=== PATIENT | male | born 1985 | race Caucasian/White ===

== ENCOUNTER 2022-04-26 16:46 | Outpatient (CLI) | payer BC ==
[2022-04-26 18:42] LABS: #Basophils 0.1 10x3/uL (0.0-0.2); #Eosinphils 0.3 10x3/uL (0.0-0.5); #Monocytes 0.6 10x3/uL (0.0-1.1); #Neutrophils 3.3 10x3/uL (1.5-8.4); %Basophils 0.8 % (0.0-2.0); %Lymphocytes 33.4 % (18.0-47.0); %Monocytes 9.6 % (0.0-10.0); %Neutrophils 51.9 % (40.0-75.0); Hemoglobin 15.7 g/dL (13.5-17.5); Mean Platelet Volume 10.4 fl (7.4-10.4); Platelet Count 299 10x3/uL (150-450); RBC Distribution Width 11.9 % (11.5-14.5); White Blood Cell (WBC) Count 6.3 10x3/uL (3.5-10.5)
[2022-04-26 18:55] LABS: Anion Gap 15 mmol/L (10-20); BUN (Urea Nitrogen) 21 mg/dL (8.9-20.6); Calc. Creatinine Clearance 0 mL/min (70-130); Calcium 9.4 mg/dL (7.8-10.44); Carbon Dioxide 25 mmol/L (22-29); Chloride 104 mmol/L (98-107); Estimated GFR 112; Glucose 77 mg/dL (70-105); Potassium 3.7 mmol/L (3.5-5.1); Sodium 140 mmol/L (136-145)
== END 2022-04-26 16:47 | disposition home or self-care (01) ==
LOC: LABBT 16:46
PROVIDERS: ATTEND Orthopaedic Surgery
DX: Z01.812 Encounter for preprocedural laboratory examination (principal); D17.24 Benign lipomatous neoplasm of skin and subcutaneous tissue of left leg; Z20.822 Contact with and (suspected) exposure to COVID-19
CPT/HCPCS: 80048; 85025; 87811

== ENCOUNTER 2022-04-29 07:26 | Day surgery (SDC) | payer BC ==
[2022-04-28 10:58] VITALS: BMI 29.0
[2022-04-29] MEDS ORDERED: PROPOFOL 20 ML ONE (07:57)
[2022-04-29] MEDS ORDERED: Lidocaine 2% PF 5 ML VIAL ONE (07:57)
[2022-04-29] MEDS ORDERED: Bupivacaine PF 0.5% 30 ML VIAL ONE ×2 (07:57→10:38)
[2022-04-29] MEDS ORDERED: Lidocaine 1% MPF 2 ML VIAL ONE (08:00)
[2022-04-29] MEDS ORDERED: Clindamycin/D5W 900 mg/50 ml Premix Bag ONE (08:00)
[2022-04-29] MEDS ORDERED: Clindamycin/D5W 600 mg/50 ml Premix Bag ONE (08:20)
[2022-04-29] MEDS ORDERED: Dexamethasone 20 MG/5 ML VIAL ONE (10:01)
[2022-04-29] MEDS ORDERED: PROPOFOL 200 MG/20 ML VIAL ONE (10:01)
[2022-04-29] MEDS ORDERED: Ondansetron PF 4 MG/2 ML Vial ONE (10:01)
[2022-04-29] MEDS ORDERED: fentaNYL Citrate/PF 100 MCG/2 ML SYRINGE ONE (10:33)
== END 2022-04-29 14:10 | disposition home or self-care (01) ==
LOC: SDC 07:26
PROVIDERS: ATTEND Orthopaedic Surgery
PROC: 0SBD4ZZ Excision of Left Knee Joint, Percutaneous Endoscopic Approach (ICD-10-PCS; principal; 2022-04-29)
PROC: 0JBP0ZZ Excision of Left Lower Leg Subcutaneous Tissue and Fascia, Open Approach (ICD-10-PCS; principal; 2022-04-29)
DX: D17.24 Benign lipomatous neoplasm of skin and subcutaneous tissue of left leg (principal); M22.42 Chondromalacia patellae, left knee; F17.290 Nicotine dependence, other tobacco product, uncomplicated; Z79.899 Other long term (current) drug therapy; Z88.0 Allergy status to penicillin
CPT/HCPCS: 88304; J1100; J2001; J2405; J2704; J3490; S0020